=== PATIENT | female | born 1965 | race African-American/Black ===

== ENCOUNTER 2017-03-28 17:07 | Emergency (ER) | payer OTHER ==
[~2017-03-28] VITALS: Ht 157.5 cm; Wt 99.8 kg
[2017-03-28 18:52] LABS: ABSOLUTE NEUTROPHILS 2.6 thou/uL (1.4-8.2); BASOPHILS 0.8 % (0.0-2.0); HEMATOCRIT 36.2 % (37.0-47.0); HEMOGLOBIN 12.3 gm/dL (12.0-15.0); LYMPHOCYTES 39.8 % (24.0-44.0); MCH 27.5 pg (26.0-34.0); MONOCYTES 7.6 % (1.0-8.0); PLATELET COUNT 241 thou/uL (150-400); POLYS 47.8 % (36.0-66.0); RBC 4.47 mil/uL (4.20-5.00); RDW 17.1 % (10.5-14.5); WBC 5.5 thou/uL (4.0-11.0)
[2017-03-28 18:59] LABS: CALCIUM 8.7 mg/dL (8.5-10.1); CREATININE 1.1 mg/dL (0.6-1.0); POTASSIUM 3.5 mmol/L (3.5-5.1)
[2017-03-28] MEDS ORDERED: NORCO 5-325 TA1 EACH PO (20:36)
[2017-03-28] MEDS ORDERED: PENICILLIN VK500 M1 PO (20:36)
== END 2017-03-28 20:42 | disposition home or self-care (01) ==
LOC: ER 17:07
PROVIDERS: Emergency Medicine
DX: M54.12 Radiculopathy, cervical region (principal); K08.89 Other specified disorders of teeth and supporting structures; R51 Headache; I10 Essential (primary) hypertension; G47.30 Sleep apnea, unspecified; K21.9 Gastro-esophageal reflux disease without esophagitis; Z90.49 Acquired absence of other specified parts of digestive tract; Z88.6 Allergy status to analgesic agent